=== PATIENT | female | born 1980 | race American Indian/Alaskan Native ===

== ENCOUNTER 2023-11-10 06:08 | Day surgery (SDC) | payer OTHER ==
[~2023-11-10] VITALS: Ht 157.5 cm; Wt 101.8 kg
[~2023-11-10 06:08] MED LIST: LR 1,000 ML IV SCH; NO HOME MEDICATIONS; Ondansetron 4 MG/2 ML VIAL IV PRN
[2023-11-10] MEDS ORDERED: Lidocaine PF 2% (20 MG/ML) 5 ML VIAL ONE (06:39)
[2023-11-10] MEDS ORDERED: Glycopyrrolate 0.2 MG/ML 1 ML VIAL ONE (06:39)
[2023-11-10] MEDS ORDERED: ZYRTEC 10MG10 MG PO (06:42)
[2023-11-10] MEDS ORDERED: PROBIOTIC BLEN1 EACH PO (06:42)
[2023-11-10] MEDS ORDERED: OMEGA-3 1000 MG1 CAP PO (06:43)
[2023-11-10 07:33] VITALS: BP 120/82; PULSE 80; TEMP 97.6
[2023-11-10 08:05] VITALS: BP 92/48; PULSE 89; TEMP 97.6
[2023-11-10 08:20] VITALS: BP 100/67; PULSE 73
[2023-11-10 08:35] VITALS: BP 105/74; PULSE 64
[2023-11-10 08:50] VITALS: BP 110/80; PULSE 64
--- NOTE | 2023-11-10 09:05 | NUR ---
0805-PT TO BAY 2 PER CART FROM PROCEDURE ROOM. PT AMBULATED FROM CART TO CHAIR WITH STANDBY ASSIST X2. REPORT RECEIVED. VS OBTAINED. CALL LIGHT WITHIN REACH. 0820-PT TOLERATING PUDDING AND WATER. 0835-PT DENIES ANY NEEDS. NO CHANGE. 0850-IV DC'D AT THIS TIME. 0855-DISCHARGE EDUCATION COMPLETED WITH PT AND HER RIDE. VERBALIZED UNDERSTANDING OF HOME AND FOLLOW UP CARE. ALL QUESTIONS ANSWERED. DISCHARGE PAPERWORK GIVEN TO PT. PT ABLE TO DRESS SELF WITHOUT ASSISTANCE. 09-DR MERCADO DISCUSSING PROCEDURE FINDINGS WITH PT. 09-PT OFF UNIT PER WHEELCHAIR. PT DISCHARGE TO HOME WITH FRIEND.
== END 2023-11-10 09:05 | disposition home or self-care (01) ==
LOC: SDCO 06:08
DX: Z12.11 Encounter for screening for malignant neoplasm of colon (principal)
CPT/HCPCS: J2704; J7120

== ENCOUNTER → 2023-12-02 | Outpatient (CLI) | payer OTHER ==
[~2023-12-02] MED LIST changes: -LR 1,000 ML IV SCH; +OMEGA-3 1000 MG1 CAP PO; -Ondansetron 4 MG/2 ML VIAL IV PRN; +PROBIOTIC BLEN1 EACH PO; +ZYRTEC 10MG10 MG PO
== END ==
LOC: MC.RAD 11:08
DX: Z12.31 Encounter for screening mammogram for malignant neoplasm of breast (principal)